=== PATIENT | male | born 1985 | race Caucasian/White ===

== ENCOUNTER 2016-10-16 11:44 | Inpatient (IN) | payer MEDICARE ==
[~2016-10-16] VITALS: Ht 175.3 cm; Wt 90.4 kg
[2016-10-16] MEDS ORDERED: HALO1 PO (11:59)
[2016-10-16] MEDS ORDERED: DIVA125T PO (11:59)
[2016-10-16] MEDS ORDERED: HALOPERIDOL 5 MG TABLET PO ONE (12:15)
[2016-10-16 12:35] LABS: ANION GAP 12 mmol/L (8-16); CALCIUM, TOTAL 9.6 mg/dL (8.8-10.5); CARBON DIOXIDE 26 mmol/L (22-29); CHLORIDE 102 mmol/L (98-107); CREATININE 0.96 mg/dL (0.60-1.30); GLOMERULAR FILTR. RATE CALC > 60 mL/min (>60); POTASSIUM 3.6 mmol/L (3.5-5.1); SODIUM SERUM 140 mmol/L (136-145); UREA NITROGEN, BLOOD 10 mg/dL (7-18)
[2016-10-16 12:41] LABS: ALANINE AMINOTRANSFERASE 39 U/L (12-78); ALBUMIN 4.4 g/dL (3.4-5.0); ASPARTATE AMINOTRANSFERASE 24 U/L (15-37); BASOPHILS % (AUTO) 0.4 % (0.0-2.0); BILIRUBIN,TOTAL 0.6 mg/dL (0.1-1.0); EOSINOPHILS % (AUTO) 0.3 % (1.0-6.0); HEMATOCRIT 42.2 % (41-53); HEMOGLOBIN 14.4 g/dL (13.5-17.5); LYMPHOCYTES # (AUTO) 1.5 K/uL (1.0-4.8); LYMPHOCYTES % (AUTO) 29.6 % (22.0-44.0); MEAN CORPUSCULAR HEMOGLOBIN 28.9 pg (26.0-34.0); MEAN CORPUSCULAR HGB CONC 34.2 G/dL (31.0-37.0); MEAN CORPUSCULAR VOLUME 85 fL (80-100); MONOCYTES # (AUTO) 0.3 K/uL (0.1-1.0); MONOCYTES % (AUTO) 5.7 % (2.0-9.0); NEUTROPHILS # (AUTO) 3.3 K/uL (1.8-7.7); PLATELET COUNT (AUTO) 227 K/uL (150-450); RED BLOOD CELL COUNT(AUTO) 4.99 MIL/uL (4.50-5.90); RED CELL DISTRIBUTION WIDTH 13.2 % (11.5-14.5); TOTAL PROTEIN, SERUM 7.9 g/dL (6.4-8.2); WHITE BLOOD COUNT (AUTO) 5.1 K/uL (4.5-11.0)
[2016-10-16 12:59] LABS: VALPROIC ACID < 3 mcg/mL (50-100)
[2016-10-16] MEDS ORDERED: HALOPERIDOL 5 MG TABLET PO PRN (13:15)
[2016-10-16] MEDS ORDERED: ZOLPIDEM TARTRATE 10 MG TABLET PO PRN (13:15)
[2016-10-16 15:05] VITALS: BP 124/78
[2016-10-16 16:27] VITALS: BP 125/82
[2016-10-16] MEDS: BENZTROPINE MESYLATE 0.5 MG TABLET PO SCH (18:24)
[2016-10-16] MEDS: LORazepam 2 MG TABLET PO PRN (18:25)
[2016-10-16] MEDS: HALOPERIDOL 5 MG TABLET PO SCH (18:25)
[2016-10-17 06:22] VITALS: BP 125/63
[2016-10-17 08:10] VITALS: BP 111/67
[2016-10-17] MEDS: BENZTROPINE MESYLATE 0.5 MG TABLET PO SCH ×2 (08:26→16:03)
[2016-10-17] MEDS: HALOPERIDOL 5 MG TABLET PO SCH ×2 (08:26→16:03)
[2016-10-17] MEDS: LORazepam 2 MG TABLET PO PRN ×2 (08:27→15:43)
[2016-10-17] MEDS ORDERED: NICOTINE 21 MG/24 HOUR PATCH TD SCH (09:00)
[2016-10-17 09:08] LABS: HEMOGLOBIN A1C 5.7 % (4.5-6.2)
[2016-10-17 09:32] LABS: CHOL/HDL RATIO 3.8 (4.2-7.3); THYROID STIMULATING HORMONE 0.67 uIU/mL (0.36-3.74)
[2016-10-17] MEDS ORDERED: LOPERAMIDE HCL 2 MG CAPSULE PO PRN (09:45)
[2016-10-17] MEDS ORDERED: BENZOCAINE/MENTHOL LOZENGE MM PRN (09:45)
[2016-10-17] MEDS ORDERED: PETROLATUM,WHITE 71 GM JELLY TP PRN (09:45)
[2016-10-17] MEDS ORDERED: BACITRACIN 28.4 GM OINTMENT TP PRN (09:45)
[2016-10-17] MEDS ORDERED: ACETAMINOPHEN 325 MG TABLET PO PRN (09:45)
[2016-10-17] MEDS ORDERED: ONDANSETRON HCL 4 MG TABLET PO PRN (09:45)
[2016-10-17] MEDS ORDERED: IBUPROFEN 600 MG TABLET PO PRN (09:45)
[2016-10-17] MEDS ORDERED: CloNIDine HCL 0.1 MG TABLET PO PRN (09:45)
[2016-10-17] MEDS ORDERED: MAG HYDROX/AL HYDROX/SIMETH ES 30 ML SUSPENSION UDCUP PO PRN (09:45)
[2016-10-17] MEDS ORDERED: MAGNESIUM HYDROXIDE SUSPENSION 30 ML UDCUP PO PRN (09:45)
[2016-10-17] MEDS ORDERED: ALBUTEROL SULFATE HFA 90 MCG/PUFF 8 GM INHALER IH PRN (09:45)
[2016-10-17 16:21] VITALS: BP 131/70
[2016-10-17] MEDS ORDERED: BENZ0.5T6 PO (19:05)
== END 2016-10-17 20:00 | disposition home or self-care (01) | DRG 885 ==
LOC: EEVIPCON 11:47 → EMS 11:47 → B3A 13:01
PROVIDERS: ADMIT Psychiatry & Neurology Psychiatry; ATTEND Psychiatry & Neurology Psychiatry
DX: F25.0 Schizoaffective disorder, bipolar type (principal); F15.20 Other stimulant dependence, uncomplicated; R45.851 Suicidal ideations; F17.210 Nicotine dependence, cigarettes, uncomplicated; G47.00 Insomnia, unspecified; F17.200 Nicotine dependence, unspecified, uncomplicated; R03.0 Elevated blood-pressure reading, without diagnosis of hypertension; Z71.6 Tobacco abuse counseling; Z91.83 Wandering in diseases classified elsewhere; Z72.89 Other problems related to lifestyle; Z71.41 Alcohol abuse counseling and surveillance of alcoholic
CPT/HCPCS: 83036; 84443; 99285; G0480

== ENCOUNTER 2016-11-06 10:07 | Emergency (ER) | payer MEDICARE ==
[~2016-11-06] VITALS: Ht 180.3 cm; Wt 95.5 kg
[~2016-11-06 10:07] MED LIST: BENZ0.5T6 PO; HALO1 PO
[2016-11-06 10:29] VITALS: BP 128/80
== END 2016-11-06 11:26 | disposition home or self-care (01) ==
LOC: EMS 10:10 → EEVIPCON 10:10 → EMS 11:26
DX: Z76.0 Encounter for issue of repeat prescription (principal); F25.9 Schizoaffective disorder, unspecified
CPT/HCPCS: 99284

== ENCOUNTER 2016-11-26 15:30 | Emergency (ER) | payer MEDICAID, MEDICARE ==
[~2016-11-26] VITALS: Ht 180.3 cm; Wt 95.5 kg
[2016-11-26 15:36] VITALS: BP 155/84
== END 2016-11-26 17:08 | disposition home or self-care (01) ==
LOC: EMS 15:33
DX: Z76.0 Encounter for issue of repeat prescription (principal); F20.9 Schizophrenia, unspecified; F17.210 Nicotine dependence, cigarettes, uncomplicated; F12.10 Cannabis abuse, uncomplicated
CPT/HCPCS: 99283

== ENCOUNTER 2021-11-04 06:04 | Inpatient (IN) | payer MEDICARE, MEDICAID ==
[~2021-11-04] VITALS: Ht 180.3 cm; Wt 66.5 kg
[~2021-11-04 06:04] MED LIST changes: +BENZ0.5T49 PO; -BENZ0.5T6 PO; -HALO1 PO; +HALO1TAB2 PO
[2021-11-04] MEDS ORDERED: HALOPERIDOL LACTATE 5 MG/ML VIAL IM ONE ×2 (08:00→08:45)
[2021-11-04 08:24] LABS: BASOPHILS % (AUTO) 0.8 % (0.0-2.0); EOSINOPHILS % (AUTO) 0.7 % (1.0-6.0); HEMATOCRIT 40.8 % (41-53); LYMPHOCYTES # (AUTO) 1.7 K/uL (1.0-4.8); LYMPHOCYTES % (AUTO) 36.4 % (22.0-44.0); MEAN CORPUSCULAR HGB CONC 34.2 G/dL (31.0-37.0); MEAN CORPUSCULAR VOLUME 85 fL (80-100); MONOCYTES # (AUTO) 0.2 K/uL (0.1-1.0); MONOCYTES % (AUTO) 3.5 % (2.0-9.0); NEUTROPHILS # (AUTO) 2.7 K/uL (1.8-7.7); NEUTROPHILS % (AUTO) 58.6 % (40.0-70.0); PLATELET COUNT (AUTO) 237 K/uL (150-450); RED BLOOD CELL COUNT(AUTO) 4.82 MIL/uL (4.50-5.90); RED CELL DISTRIBUTION WIDTH 13.5 % (11.5-14.5)
[2021-11-04 08:40] LABS: ALANINE AMINOTRANSFERASE 44 U/L (12-78); ALBUMIN 4.1 g/dL (3.4-5.0); ALKALINE PHOSPHATASE 84 U/L (46-116); ANION GAP 7 mmol/L (8-16); ASPARTATE AMINOTRANSFERASE 59 U/L (15-37); BILIRUBIN,TOTAL 0.6 mg/dL (0.1-1.0); CARBON DIOXIDE 29 mmol/L (22-29); CHLORIDE 104 mmol/L (98-107); GLUCOSE,RANDOM 99 mg/dL (70-110); POTASSIUM 3.8 mmol/L (3.5-5.1); SODIUM SERUM 140 mmol/L (136-145); TOTAL PROTEIN, SERUM 7.5 g/dL (6.4-8.2); UREA NITROGEN, BLOOD 19 mg/dL (7-18)
[2021-11-04 08:43] LABS: CREATININE 0.89 mg/dL (0.60-1.30)
[2021-11-04 08:44] LABS: GLOMERULAR FILTR. RATE CALC > 60 mL/min (>60)
[2021-11-04] MEDS ORDERED: DiphenhydrAMINE HCL 50 MG/ML VIAL IM ONE (08:45)
[2021-11-04] MEDS ORDERED: DIAZEPAM 5 MG/ML 2 ML SYRINGE IM ONE (08:45)
[2021-11-04 09:14] LABS: COVID AG,FIA SOURCE NASOPHARYNGEAL
[2021-11-04] MEDS ORDERED: ZOLPIDEM TARTRATE 10 MG TABLET PO PRN (09:15)
[2021-11-04] MEDS ORDERED: ACETAMINOPHEN 325 MG TABLET PO PRN (13:30)
[2021-11-04] MEDS ORDERED: TUBERCULIN, PURIFIED PROTEIN DERIVATIVE 5 TU/0.1 ML SYRINGE ID ONE (13:30)
[2021-11-04] MEDS ORDERED: LOPERAMIDE HCL 2 MG CAPSULE PO PRN (13:30)
[2021-11-04] MEDS ORDERED: MAG HYDROX/AL HYDROX/SIMETH ES 30 ML SUSPENSION UDCUP PO PRN (13:30)
[2021-11-04] MEDS ORDERED: PROMETHAZINE HCL 25 MG TABLET PO PRN (13:30)
[2021-11-04] MEDS ORDERED: GuaiFENesin/D-METHORPHAN [SUGAR-FREE] 200-20MG/10 ML SYRUP UDCUP PO PRN (13:30)
[2021-11-04] MEDS ORDERED: HydrOXYzine PAMOATE 50 MG CAPSULE PO PRN (13:30)
[2021-11-04] MEDS ORDERED: MAGNESIUM HYDROXIDE SUSPENSION 30 ML UDCUP PO PRN (13:30)
[2021-11-04] MEDS ORDERED: CloNIDine HCL 0.1 MG TABLET PO PRN (16:15)
[2021-11-04 21:00] VITALS: BP 138/81
[2021-11-04] MEDS: MELATONIN 5 MG TABLET PO SCH (21:00)
[2021-11-04] MEDS: THIAMINE 100 MG TABLET PO SCH (22:13)
[2021-11-04] MEDS: OLANZapine 5 MG RAPDIS TABLET PO SCH (22:14)
[2021-11-05 07:17] LABS: HEMOGLOBIN A1C 5.3 % (3.8-5.6)
[2021-11-05 07:27] LABS: CHOL/HDL RATIO 1.9 (4.2-7.3); CHOLESTEROL 191 mg/dL (131-200); FREE T4 (FREE THYROXINE) 1.22 ng/dL (0.76-1.46); HDL CHOLESTEROL 102 mg/dL (40-60); LDL CHOL (CALC.) 79 mg/dL (0-130); THYROID STIMULATING HORMONE 1.32 uIU/mL (0.36-3.74); TRIGLYCERIDES 48 mg/dL (15-150)
[2021-11-05] MEDS: NALTREXONE HCL 50 MG TABLET PO SCH (08:46)
[2021-11-05] MEDS: THIAMINE 100 MG TABLET PO SCH ×2 (08:46→16:20)
[2021-11-05] MEDS: MULTIVITAMINS WITH MINERALS, THERAPEUTIC TABLET PO SCH (08:46)
[2021-11-05] MEDS: OLANZapine 5 MG RAPDIS TABLET PO SCH ×3 (08:46→16:20)
[2021-11-05] MEDS: OMEGA-3/DHA/EPA/FISH OIL 1,000 MG CAPSULE PO SCH (08:46)
[2021-11-05] MEDS: FOLIC ACID 1 MG TABLET PO SCH (08:46)
[2021-11-05 16:07] VITALS: BP 107/62
[2021-11-05] MEDS ORDERED: PALIPERIDONE PALMITATE 234 MG/1.5 ML SYRINGE IM ONE (17:45)
[2021-11-05] MEDS: LORazepam 2 MG TABLET PO PRN (18:30)
[2021-11-05] MEDS: MELATONIN 5 MG TABLET PO SCH (20:16)
[2021-11-06 08:19] LABS: PHOSPHORUS 3.6 mg/dL (2.5-4.9)
[2021-11-06] MEDS: FOLIC ACID 1 MG TABLET PO SCH (09:00)
[2021-11-06] MEDS: THIAMINE 100 MG TABLET PO SCH ×2 (09:00→16:55)
[2021-11-06] MEDS: OMEGA-3/DHA/EPA/FISH OIL 1,000 MG CAPSULE PO SCH (09:00)
[2021-11-06] MEDS: OLANZapine 5 MG RAPDIS TABLET PO SCH ×3 (09:00→16:55)
[2021-11-06] MEDS: MULTIVITAMINS WITH MINERALS, THERAPEUTIC TABLET PO SCH (09:00)
[2021-11-06] MEDS: NALTREXONE HCL 50 MG TABLET PO SCH (09:00)
[2021-11-06 10:48] VITALS: BP 114/80
[2021-11-06 16:26] VITALS: BP 117/80
[2021-11-06] MEDS ORDERED: PALIPERIDONE PALMITATE 234 MG/1.5 ML SYRINGE IM ONE (16:30)
[2021-11-06] MEDS: LORazepam 2 MG TABLET PO PRN (18:00)
[2021-11-06] MEDS: MELATONIN 5 MG TABLET PO SCH (20:13)
[2021-11-07] MEDS ORDERED: HALOPERIDOL LACTATE 5 MG/ML VIAL ONE (06:22)
[2021-11-07] MEDS ORDERED: LORazepam 2 MG/ML VIAL ONE (06:22)
[2021-11-07] MEDS ORDERED: DiphenhydrAMINE HCL 50 MG/ML VIAL ONE (06:22)
[2021-11-07] MEDS ORDERED: LORazepam 2 MG/ML VIAL IM ONE (06:30)
[2021-11-07] MEDS ORDERED: HALOPERIDOL LACTATE 5 MG/ML VIAL IM ONE (06:30)
[2021-11-07] MEDS ORDERED: DiphenhydrAMINE HCL 50 MG/ML VIAL IM ONE (06:30)
[2021-11-07] MEDS: OMEGA-3/DHA/EPA/FISH OIL 1,000 MG CAPSULE PO SCH (08:20)
[2021-11-07] MEDS: FOLIC ACID 1 MG TABLET PO SCH (08:20)
[2021-11-07] MEDS: OLANZapine 5 MG RAPDIS TABLET PO SCH ×3 (08:20→16:10)
[2021-11-07] MEDS: MULTIVITAMINS WITH MINERALS, THERAPEUTIC TABLET PO SCH (08:20)
[2021-11-07] MEDS: THIAMINE 100 MG TABLET PO SCH ×2 (08:20→16:10)
[2021-11-07] MEDS: NALTREXONE HCL 50 MG TABLET PO SCH (08:20)
[2021-11-07 16:01] VITALS: BP 114/81
[2021-11-07] MEDS: MELATONIN 5 MG TABLET PO SCH (20:57)
[2021-11-08] MEDS: MULTIVITAMINS WITH MINERALS, THERAPEUTIC TABLET PO SCH ×2 (07:24→07:47)
[2021-11-08] MEDS: OMEGA-3/DHA/EPA/FISH OIL 1,000 MG CAPSULE PO SCH ×2 (07:24→07:42)
[2021-11-08] MEDS: FOLIC ACID 1 MG TABLET PO SCH ×2 (07:24→07:46)
[2021-11-08] MEDS: THIAMINE 100 MG TABLET PO SCH ×3 (07:25→16:24)
[2021-11-08] MEDS: LORazepam 2 MG TABLET PO PRN ×2 (07:25→17:15)
[2021-11-08] MEDS: OLANZapine 5 MG RAPDIS TABLET PO SCH ×4 (07:25→16:25)
[2021-11-08] MEDS: NALTREXONE HCL 50 MG TABLET PO SCH ×2 (07:25→07:47)
[2021-11-08 08:07] VITALS: BP 138/71
[2021-11-08] MEDS: MELATONIN 5 MG TABLET PO SCH (20:11)
[2021-11-09 08:12] VITALS: BP 130/89
[2021-11-09] MEDS: OLANZapine 5 MG RAPDIS TABLET PO SCH ×4 (08:19→16:20)
[2021-11-09] MEDS: NALTREXONE HCL 50 MG TABLET PO SCH (08:19)
[2021-11-09] MEDS: MULTIVITAMINS WITH MINERALS, THERAPEUTIC TABLET PO SCH (08:19)
[2021-11-09] MEDS: FOLIC ACID 1 MG TABLET PO SCH (08:19)
[2021-11-09] MEDS: THIAMINE 100 MG TABLET PO SCH ×2 (08:19→16:20)
[2021-11-09] MEDS: OMEGA-3/DHA/EPA/FISH OIL 1,000 MG CAPSULE PO SCH (08:19)
[2021-11-09] MEDS ORDERED: PALIPERIDONE PALMITATE 156 MG/ML SYRINGE IM ONE (09:00)
[2021-11-09] MEDS: LORazepam 2 MG TABLET PO PRN (17:15)
[2021-11-09] MEDS: MELATONIN 5 MG TABLET PO SCH (20:11)
[2021-11-10 08:04] VITALS: BP 147/104
[2021-11-10] MEDS: THIAMINE 100 MG TABLET PO SCH ×2 (08:11→16:25)
[2021-11-10] MEDS: MULTIVITAMINS WITH MINERALS, THERAPEUTIC TABLET PO SCH (08:11)
[2021-11-10] MEDS: OLANZapine 5 MG RAPDIS TABLET PO SCH ×3 (08:11→16:25)
[2021-11-10] MEDS: NALTREXONE HCL 50 MG TABLET PO SCH (08:11)
[2021-11-10] MEDS: OMEGA-3/DHA/EPA/FISH OIL 1,000 MG CAPSULE PO SCH (08:11)
[2021-11-10] MEDS: LORazepam 2 MG TABLET PO PRN ×2 (08:12→16:28)
[2021-11-10] MEDS: FOLIC ACID 1 MG TABLET PO SCH (08:12)
[2021-11-10] MEDS: MELATONIN 5 MG TABLET PO SCH (20:19)
[2021-11-11 06:54] LABS: COVID AG,FIA SOURCE NASAL SWAB
[2021-11-11 08:22] VITALS: BP 141/93
[2021-11-11] MEDS: FOLIC ACID 1 MG TABLET PO SCH ×2 (09:00→11:42)
[2021-11-11] MEDS: OMEGA-3/DHA/EPA/FISH OIL 1,000 MG CAPSULE PO SCH ×2 (09:00→11:42)
[2021-11-11] MEDS: NALTREXONE HCL 50 MG TABLET PO SCH (09:19)
[2021-11-11] MEDS: MULTIVITAMINS WITH MINERALS, THERAPEUTIC TABLET PO SCH (09:19)
[2021-11-11] MEDS: LORazepam 2 MG TABLET PO PRN ×2 (09:19→15:48)
[2021-11-11] MEDS: OLANZapine 5 MG RAPDIS TABLET PO SCH (09:19)
[2021-11-11] MEDS: THIAMINE 100 MG TABLET PO SCH ×2 (09:19→15:48)
[2021-11-11] MEDS: OLANZapine 5 MG RAPDIS TABLET PO PRN ×2 (15:48→20:02)
[2021-11-11] MEDS: MELATONIN 5 MG TABLET PO SCH (20:02)
[2021-11-12] MEDS: MULTIVITAMINS WITH MINERALS, THERAPEUTIC TABLET PO SCH (07:29)
[2021-11-12] MEDS: FOLIC ACID 1 MG TABLET PO SCH (07:30)
[2021-11-12] MEDS: THIAMINE 100 MG TABLET PO SCH ×2 (07:30→16:06)
[2021-11-12] MEDS: LORazepam 2 MG TABLET PO PRN (07:30)
[2021-11-12] MEDS: OMEGA-3/DHA/EPA/FISH OIL 1,000 MG CAPSULE PO SCH (07:30)
[2021-11-12] MEDS: NALTREXONE HCL 50 MG TABLET PO SCH (07:30)
[2021-11-12] MEDS ORDERED: LORazepam 2 MG/ML VIAL IM ONE (08:15)
[2021-11-12] MEDS ORDERED: HALOPERIDOL LACTATE 5 MG/ML VIAL IM ONE (08:15)
[2021-11-12] MEDS ORDERED: DiphenhydrAMINE HCL 50 MG/ML VIAL IM ONE (08:15)
[2021-11-12] MEDS ORDERED: OLANZapine 5 MG RAPDIS TABLET PO SCH (09:00)
[2021-11-12 16:06] VITALS: BP 131/76
[2021-11-12] MEDS: OLANZapine 5 MG RAPDIS TABLET PO PRN (16:06)
[2021-11-12] MEDS: MELATONIN 5 MG TABLET PO SCH (20:10)
[2021-11-12] MEDS ORDERED: DIVALPROEX SODIUM 500 MG ER TABLET PO SCH (21:00)
[2021-11-13 08:00] VITALS: BP 132/82
[2021-11-13] MEDS: THIAMINE 100 MG TABLET PO SCH (08:11)
[2021-11-13] MEDS: FOLIC ACID 1 MG TABLET PO SCH (08:11)
[2021-11-13] MEDS: LORazepam 2 MG TABLET PO PRN (08:11)
[2021-11-13] MEDS: MULTIVITAMINS WITH MINERALS, THERAPEUTIC TABLET PO SCH (08:11)
[2021-11-13] MEDS: NALTREXONE HCL 50 MG TABLET PO SCH (08:11)
[2021-11-13] MEDS: OMEGA-3/DHA/EPA/FISH OIL 1,000 MG CAPSULE PO SCH (08:11)
[2021-11-13] MEDS ORDERED: OLANZapine 10 MG RAPDIS TABLET PO SCH (09:00)
[2021-11-13] MEDS ORDERED: PALIPERIDONE PALMITATE 234 MG/1.5 ML SYRINGE IM ONE (13:00)
[2021-11-13] MEDS ORDERED: OMEG-135 PO (14:00)
[2021-11-13] MEDS ORDERED: OLAN10TA26 PO (14:00)
[2021-11-13] MEDS ORDERED: NALT50TA PO (14:00)
[2021-11-13] MEDS ORDERED: MELA5TAB40 PO (14:00)
[2021-12-04] MEDS ORDERED: PALIPERIDONE PALMITATE 234 MG/1.5 ML SYRINGE IM SCH (09:00)
== END 2021-11-13 15:05 | disposition home or self-care (01) | DRG 885 ==
LOC: EMS 06:05 → B3A 10:53 → 3EC 19:26
PROVIDERS: ADMIT Psychiatry & Neurology Psychiatry; ATTEND Psychiatry & Neurology Psychiatry
DX: F25.0 Schizoaffective disorder, bipolar type (principal); F41.9 Anxiety disorder, unspecified; Z20.822 Contact with and (suspected) exposure to COVID-19; F17.210 Nicotine dependence, cigarettes, uncomplicated; I10 Essential (primary) hypertension; Z55.9 Problems related to education and literacy, unspecified; Z59.9 Problem related to housing and economic circumstances, unspecified; Z63.9 Problem related to primary support group, unspecified; Z65.3 Problems related to other legal circumstances; Z91.19 Patient's noncompliance with other medical treatment and regimen
CPT/HCPCS: 80053; 80061; 83036; 83735; 84100; 84439; 84443; 85025; 86592; 99291; G0480; J1200; J1630; J2060; Q9967

== ENCOUNTER 2021-11-04 13:10 | Emergency (ER) | payer OTHER, MEDICAID ==
[~2021-11-04] VITALS: Ht 175.3 cm; Wt 82.3 kg
[2021-11-04 16:16] VITALS: BP 136/102
== END 2021-11-04 21:00 | disposition home or self-care (01) ==
LOC: EMS 13:10
DX: F20.9 Schizophrenia, unspecified (principal); F29 Unspecified psychosis not due to a substance or known physiological condition; F17.210 Nicotine dependence, cigarettes, uncomplicated; F12.90 Cannabis use, unspecified, uncomplicated
CPT/HCPCS: 99285; Z7502